=== PATIENT | female | born 1995 | race Two or more races ===

== ENCOUNTER 2023-12-08 15:10 | Emergency (ER) | payer OTHER ==
[2023-12-08 15:18] VITALS: BP 124/85; PULSE 95; RESP 18; TEMP 98.2; BMI 40.7
[2023-12-08] MEDS ORDERED: ACETAMINOPHEN 500 MG TABLET (FP) ONE (16:21)
[2023-12-08] MEDS: ACETAMINOPHEN 500 MG TABLET (FP) PO ONE (16:23)
[2023-12-08 16:28] LABS: BASO % 0.3 % (0-2.0); EOS % 2.8 % (0-4.5); HEMATOCRIT 39.5 % (32.4-45.2); MCH 27.2 pg (25.7-33.7); MCHC 32.9 g/dl (32.0-36.0); MEAN CELL VOLUME 82.7 fl (80-96); MONO % 10.6 % (3.8-10.2); NEUT % 69.3 % (42.8-82.8); PLATELET COUNT 278 10^3/uL (134-434); RBC 4.77 M/mm3 (3.60-5.2); RDW 14.5 % (11.6-15.6); WHITE BLOOD COUNT 7.2 K/mm3 (4.0-10.0)
[2023-12-08 16:48] LABS: POTASSIUM 3.6 mmol/L (3.5-5.1)
[2023-12-08 16:51] LABS: ALBUMIN 3.9 g/dl (3.4-5.0); BLOOD UREA NITROGEN 9.5 mg/dL (7-18); CALCIUM 9.1 mg/dL (8.5-10.1)
[2023-12-08 16:54] LABS: CREATININE 0.9 mg/dL (0.55-1.3)
[2023-12-08 16:55] LABS: BILIRUBIN,TOTAL 0.2 mg/dL (0.2-1); TOT PROT 7.7 g/dl (6.4-8.2)
[2023-12-08 17:20] LABS: INR 0.96 (0.83-1.09); PROTHROMBIN TIME (PATIENT) 11.1 SEC (9.7-13.0)
[2023-12-08 17:23] LABS: ACTIVATED PTT 26.6 SECONDS (25.2-36.5)
== END 2023-12-08 22:11 | disposition home or self-care (01) ==
LOC: JER 15:10
DX: R07.2 Precordial pain (principal)
CPT/HCPCS: 36415; 71046-TC-FY; 71275-TC; 80053; 84484; 85025; 85379; 85610; 85730; 93005; 93010; 99285-25; Q9967